=== PATIENT | male | born 1960 | race Caucasian/White ===

== ENCOUNTER 2019-12-25 19:27 | Inpatient (IN) | payer MEDICARE ==
[~2019-12-25] VITALS: Ht 170.2 cm; Wt 111.9 kg
[~2019-12-25 19:27] MED LIST: ATROPINE SYRINGE 0.1 MG/ML, 10ML ONE; EPINEPHRINE SYRINGE 0.1 MG/ML, 10ML ONE
[2019-12-26] MEDS ORDERED: NOREPINEPHRINE 1 MG/ML, 4ML ONE ×2 (00:02→00:07)
[2019-12-26] MEDS ORDERED: NOREPINEPHRINE 8 MG in SODIUM CHLORIDE 0.9% 242 ML IV PRN (00:04)
[2019-12-26] MEDS ORDERED: PROPOFOL 100 ML IV ONE (00:06)
[2019-12-26] MEDS ORDERED: EPINEPHRINE SYRINGE 0.1 MG/ML, 10ML ONE (00:13)
[2019-12-26] MEDS ORDERED: CODE BLUE RESPONSE XX ONE (00:13)
[2019-12-26 00:23] LABS: BASOPHILS % (AUTO) 0 % (0-1); EOSINOPHILS # (AUTO) 0.02 x10^3/uL (0-0.4); EOSINOPHILS % (AUTO) 0 % (1-7); LYMPHOCYTES # (AUTO) 1.37 x10^3/uL (1-3.4); LYMPHOCYTES % (AUTO) 9 % (22-44); MD NO; MEAN CORPUSCULAR HGB CONC 32.4 g/dL (33.2-36.2); MEAN CORPUSCULAR VOLUME 86.4 fL (81-97); MEAN PLATELET VOLUME 8.5 fL (7.4-10.4); MONOCYTES # (AUTO) 0.03 x10^3/uL (0.2-0.8); MONOCYTES % (AUTO) 0 % (2-9); NEUTROPHILS # (AUTO) 13.43 x10^3/uL (1.8-6.8); NEUTROPHILS % (AUTO) 90 % (42-75); PLATELET COUNT 344 x10^3/uL (130-400); RED BLOOD COUNT 4.33 x10^6/uL (4.38-5.82); RED CELL DISTRIBUTION WIDTH 14.4 % (9.4-14.8)
[2019-12-26 00:29] LABS: INTERNATIONAL NORMALIZED RATIO 0.95 (0.93-1.1); PROTHROMBIN TIME 10.1 Seconds (9.6-11.5)
[2019-12-26] MEDS ORDERED: PHARMACY MAY ADJ FOR RENAL FX MC SCH (00:30)
[2019-12-26] MEDS ORDERED: DEXTROSE 4 GM TAB.CHEW PO PRN (00:30)
[2019-12-26] MEDS ORDERED: LACTULOSE 20 GM/30 ML UDC NG PRN (00:30)
[2019-12-26] MEDS ORDERED: SENNA 176 MG/5 ML ORAL SOL NG PRN (00:30)
[2019-12-26] MEDS ORDERED: DEXTROSE 50%, 50ML SYRINGE IVPush PRN (00:30)
[2019-12-26] MEDS ORDERED: SENNA/DOCUSATE TABLET NG PRN (00:30)
[2019-12-26] MEDS ORDERED: LIDOCAINE-MPF 1%, 2ML ENDO PRN (00:30)
[2019-12-26] MEDS ORDERED: GLUCAGON 1 MG IM PRN (00:30)
[2019-12-26] MEDS ORDERED: BISACODYL 10 MG SUPP PR PRN (00:30)
[2019-12-26 00:32] LABS: ANION GAP 11 mmol/L (5-15); CALCIUM 8.1 mg/dL (8.5-10.1); CHLORIDE 103 mmol/L (98-107); CREATININE 1.67 mg/dL (0.7-1.3); TRIGLYCERIDES 225 mg/dL (50-200)
[2019-12-26 00:44] VITALS: BP 155/76
[2019-12-26] MEDS ORDERED: INSU200I SC (00:57)
[2019-12-26] MEDS ORDERED: INSU100I28 SC (00:57)
[2019-12-26] MEDS ORDERED: LISI-167 PO (00:57)
[2019-12-26] MEDS ORDERED: ATOR-2 PO (00:57)
[2019-12-26 00:59] VITALS: BP 122/69
[2019-12-26 01:00] LABS: TRIGLYCERIDES 227 mg/dL (50-200); TROPONIN I < 0.015 ng/mL (0.000-0.045)
[2019-12-26] MEDS ORDERED: FENTANYL PF 100 MCG/2ML IVPush PRN (01:00)
[2019-12-26] MEDS ORDERED: VANCOMYCIN 2,500 MG in SODIUM CHLORIDE 0.9% 500 ML IV ONE (01:00)
[2019-12-26] MEDS ORDERED: PHARMACOKINETIC MONITORING MC PRN (01:00)
[2019-12-26] MEDS ORDERED: PHARMACOKINETIC CONSULTATION MC ONE (01:00)
[2019-12-26 01:08] LABS: C-REACTIVE PROTEIN, QUANT > 19.00 mg/dL (0.02-0.49)
[2019-12-26] MEDS: PIPERACILLIN/TAZO/PMX 3.375GM 50 ML IV SCH ×4 (01:11→19:57)
[2019-12-26] MEDS: ENOXAPARIN 40 MG/0.4 ML SQ SCH (01:17)
[2019-12-26 01:24] LABS: HCT (SEDRATE) 37.4 % (39.2-51.8)
[2019-12-26] MEDS ORDERED: HYDROXYCHLOROQUINE 200 MG TABLET PO SCH (01:30)
[2019-12-26] MEDS ORDERED: AZITHROMYCIN 500 MG in SODIUM CHLORIDE 0.9% 250 ML IV SCH (01:30)
[2019-12-26] MEDS: POTASSIUM CHLORIDE 40 MEQ in SODIUM CHLORIDE 0.9% 1,000 ML IV SCH ×2 (01:35→09:40)
[2019-12-26] MEDS: PLAQUENIL 200MG/8ML ORAL SUSP PO SCH ×4 (02:16→21:45)
[2019-12-26 02:29] LABS: CULTURE INDICATED? YES; MICROSCOPIC INDICATED
[2019-12-26] MEDS ORDERED: VANCOMYCIN PER PHARMACY MC PRN (03:00)
[2019-12-26] MEDS: INSULIN LISPRO 100 UNITS/ML, PEN SQ-INSULIN SCH ×4 (03:54→21:58)
[2019-12-26] MEDS: ACETAMINOPHEN 650 MG/20.3 ML UDC PO/NG PRN ×2 (05:49→22:02)
[2019-12-26] MEDS: PROPOFOL 100 ML IV PRN ×6 (05:49→23:02)
[2019-12-26 06:24] LABS: ALBUMIN 0.9 g/dL (3.4-5.0); ANION GAP 10 mmol/L (5-15); CALCIUM 7.7 mg/dL (8.5-10.1); CHLORIDE 105 mmol/L (98-107)
[2019-12-26 06:26] LABS: BASOPHILS % (AUTO) 0 % (0-1); EOSINOPHILS # (AUTO) 0.01 x10^3/uL (0-0.4); EOSINOPHILS % (AUTO) 0 % (1-7); LYMPHOCYTES # (AUTO) 0.64 x10^3/uL (1-3.4); LYMPHOCYTES % (AUTO) 5 % (22-44); MD NO; MEAN CORPUSCULAR HEMOGLOBIN 28.4 pg (27.5-34.5); MEAN CORPUSCULAR VOLUME 86.3 fL (81-97); MEAN PLATELET VOLUME 7.9 fL (7.4-10.4); MONOCYTES # (AUTO) 0.28 x10^3/uL (0.2-0.8); MONOCYTES % (AUTO) 2 % (2-9); NEUTROPHILS # (AUTO) 11.51 x10^3/uL (1.8-6.8); NEUTROPHILS % (AUTO) 93 % (42-75); PLATELET COUNT 319 x10^3/uL (130-400); RED BLOOD COUNT 3.72 x10^6/uL (4.38-5.82); RED CELL DISTRIBUTION WIDTH 13.9 % (9.4-14.8)
[2019-12-26 06:28] LABS: ALANINE AMINOTRANSFERASE 19 U/L (12-78); ALKALINE PHOSPHATASE 89 U/L (45-117); BILIRUBIN,TOTAL 0.6 mg/dL (0.2-1.0); CREATININE 1.51 mg/dL (0.7-1.3); TOTAL PROTEIN 5.3 g/dL (6.4-8.2)
[2019-12-26] MEDS ORDERED: INSULIN LISPRO 100 UNITS/ML, PEN SQ-INSULIN SCH (07:00)
[2019-12-26 07:12] LABS: TROPONIN I 0.062 ng/mL (0.000-0.045)
[2019-12-26] MEDS: PANTOPRAZOLE 40 MG IV IV SCH (08:47)
[2019-12-26] MEDS: SODIUM CHLORIDE FLUSH 10ML SYR IVF SCH ×2 (08:48→21:46)
[2019-12-26] MEDS: ZINC SULFATE 220 MG CAPSULE PO SCH (08:48)
[2019-12-26] MEDS: ASCORBATE SODIUM 3,000 MG in SODIUM CHLORIDE 0.9% 250 ML IV SCH ×3 (08:58→21:45)
[2019-12-26] MEDS ORDERED: ASCORBIC ACID 500 MG TABLET PO SCH (09:00)
[2019-12-26] MEDS ORDERED: POTASSIUM CHLORIDE 10% 20 MEQ/15 ML UDC PO ONE (10:00)
[2019-12-26] MEDS ORDERED: FUROSEMIDE 20 MG/2 ML IV ONE (10:00)
[2019-12-26] MEDS: ALBUMIN HUMAN 25% 100 ML IV SCH ×2 (10:31→16:35)
[2019-12-26] MEDS: LINEZOLID 600 MG TABLET PO SCH ×2 (10:32→21:44)
[2019-12-27] MEDS: ENOXAPARIN 40 MG/0.4 ML SQ SCH (01:40)
[2019-12-27] MEDS: ALBUMIN HUMAN 25% 100 ML IV SCH ×3 (01:40→16:32)
[2019-12-27] MEDS: PROPOFOL 100 ML IV PRN ×8 (01:45→23:32)
[2019-12-27] MEDS: PIPERACILLIN/TAZO/PMX 3.375GM 50 ML IV SCH ×2 (02:31→08:06)
[2019-12-27] MEDS: INSULIN LISPRO 100 UNITS/ML, PEN SQ-INSULIN SCH ×4 (03:00→20:24)
[2019-12-27 05:14] LABS: BASOPHILS # (AUTO) 0.01 x10^3/uL (0-0.1); BASOPHILS % (AUTO) 0 % (0-1); EOSINOPHILS # (AUTO) 0.05 x10^3/uL (0-0.4); EOSINOPHILS % (AUTO) 1 % (1-7); LYMPHOCYTES # (AUTO) 0.76 x10^3/uL (1-3.4); LYMPHOCYTES % (AUTO) 8 % (22-44); MD NO; MEAN CORPUSCULAR HEMOGLOBIN 28.2 pg (27.5-34.5); MEAN CORPUSCULAR VOLUME 85.3 fL (81-97); MEAN PLATELET VOLUME 8.1 fL (7.4-10.4); MONOCYTES # (AUTO) 0.45 x10^3/uL (0.2-0.8); MONOCYTES % (AUTO) 5 % (2-9); NEUTROPHILS # (AUTO) 7.78 x10^3/uL (1.8-6.8); NEUTROPHILS % (AUTO) 86 % (42-75); PLATELET COUNT 249 x10^3/uL (130-400); RED BLOOD COUNT 3.24 x10^6/uL (4.38-5.82); RED CELL DISTRIBUTION WIDTH 14.6 % (9.4-14.8)
[2019-12-27 05:18] LABS: ANION GAP 12 mmol/L (5-15); CALCIUM 7.9 mg/dL (8.5-10.1); CHLORIDE 108 mmol/L (98-107); CREATININE 2.87 mg/dL (0.7-1.3)
[2019-12-27] MEDS: PLAQUENIL 200MG/8ML ORAL SUSP PO SCH ×3 (05:20→22:17)
[2019-12-27] MEDS: ASCORBATE SODIUM 3,000 MG in SODIUM CHLORIDE 0.9% 250 ML IV SCH ×4 (05:20→22:17)
[2019-12-27] MEDS ORDERED: LACTATED RINGERS 1,000 ML IV ONE (09:00)
[2019-12-27] MEDS: LINEZOLID 600 MG TABLET PO SCH (09:31)
[2019-12-27] MEDS: ZINC SULFATE 220 MG CAPSULE PO SCH (09:31)
[2019-12-27] MEDS: AZITHROMYCIN 500 MG TABLET PO SCH (09:32)
[2019-12-27] MEDS: PANTOPRAZOLE 40 MG IV IV SCH (09:32)
[2019-12-27] MEDS: SODIUM CHLORIDE FLUSH 10ML SYR IVF SCH ×2 (09:42→20:24)
[2019-12-27] MEDS ORDERED: AMPICILLIN/SULBACTAM 3 GM in SODIUM CHLORIDE 0.9% 100 ML IV SCH (13:00)
[2019-12-28] MEDS: ALBUMIN HUMAN 25% 100 ML IV SCH ×2 (01:31→09:25)
[2019-12-28] MEDS: ENOXAPARIN 40 MG/0.4 ML SQ SCH (01:31)
[2019-12-28] MEDS: INSULIN LISPRO 100 UNITS/ML, PEN SQ-INSULIN SCH ×3 (03:00→14:53)
[2019-12-28] MEDS: AMPICILLIN/SULBACTAM 3 GM in SODIUM CHLORIDE 0.9% 100 ML IV SCH ×3 (03:19→14:47)
[2019-12-28] MEDS: PROPOFOL 100 ML IV PRN ×4 (03:22→13:26)
[2019-12-28] MEDS: ASCORBATE SODIUM 3,000 MG in SODIUM CHLORIDE 0.9% 250 ML IV SCH ×3 (04:52→16:00)
[2019-12-28 05:43] LABS: BASOPHILS % (AUTO) 0 % (0-1); EOSINOPHILS # (AUTO) 0.06 x10^3/uL (0-0.4); EOSINOPHILS % (AUTO) 1 % (1-7); LYMPHOCYTES # (AUTO) 0.58 x10^3/uL (1-3.4); LYMPHOCYTES % (AUTO) 6 % (22-44); MD NO; MEAN CORPUSCULAR HEMOGLOBIN 28.9 pg (27.5-34.5); MEAN CORPUSCULAR HGB CONC 32.9 g/dL (33.2-36.2); MEAN CORPUSCULAR VOLUME 87.8 fL (81-97); MEAN PLATELET VOLUME 8.3 fL (7.4-10.4); MONOCYTES % (AUTO) 4 % (2-9); NEUTROPHILS # (AUTO) 8.19 x10^3/uL (1.8-6.8); NEUTROPHILS % (AUTO) 89 % (42-75); PLATELET COUNT 217 x10^3/uL (130-400); RED BLOOD COUNT 3.15 x10^6/uL (4.38-5.82)
[2019-12-28 05:44] LABS: ANION GAP 19 mmol/L (5-15); CALCIUM 8.3 mg/dL (8.5-10.1); CHLORIDE 107 mmol/L (98-107); CREATININE 4.41 mg/dL (0.7-1.3)
[2019-12-28 05:45] LABS: ALBUMIN 2.1 g/dL (3.4-5.0)
[2019-12-28] MEDS: PLAQUENIL 200MG/8ML ORAL SUSP PO SCH (05:53)
[2019-12-28 06:16] LABS: C-REACTIVE PROTEIN, QUANT > 19.00 mg/dL (0.02-0.49)
[2019-12-28] MEDS: ZINC SULFATE 220 MG CAPSULE PO SCH (09:24)
[2019-12-28] MEDS: SODIUM CHLORIDE FLUSH 10ML SYR IVF SCH (09:25)
[2019-12-28] MEDS: AZITHROMYCIN 500 MG TABLET PO SCH (09:25)
[2019-12-28] MEDS: PANTOPRAZOLE 40 MG IV IV SCH (09:25)
[2019-12-28] MEDS ORDERED: MIDAZOLAM HCL 50 MG in SODIUM CHLORIDE 0.9% 40 ML IV PRN ×2 (10:30→15:29)
[2019-12-28] MEDS ORDERED: FENTANYL PF 1,000 MCG in SODIUM CHLORIDE 0.9% 80 ML IV PRN (10:30)
[2019-12-28] MEDS ORDERED: EPINEPHRINE SYRINGE 0.1 MG/ML, 10ML ONE ×2 (14:00→17:26)
[2019-12-28] MEDS ORDERED: SODIUM BICARB 8.4%, 50ML SYRINGE ONE ×3 (14:00→17:03)
[2019-12-28] MEDS ORDERED: CALCIUM CHLORIDE 10%, 10ML SYR ONE (14:00)
[2019-12-28] MEDS ORDERED: SODIUM BICARBONATE 8.4% 150 MEQ in DEXTROSE 5% 1,000 ML IV SCH ×2 (15:30→16:00)
[2019-12-28] MEDS ORDERED: CALCIUM CHLORIDE 13.6 MEQ/10 ML ONE ×2 (15:45→17:26)
[2019-12-28] MEDS ORDERED: EPINEPHRINE 1 MG/ML, 1ML ONE (15:45)
[2019-12-28] MEDS ORDERED: EPINEPHRINE 1 MG/ML, 30ML ONE (15:45)
[2019-12-28 16:19] LABS: ALANINE AMINOTRANSFERASE 82 U/L (12-78); ALBUMIN 2.1 g/dL (3.4-5.0); ANION GAP 16 mmol/L (5-15); CALCIUM 12.1 mg/dL (8.5-10.1); CHLORIDE 108 mmol/L (98-107); CREATININE 5.09 mg/dL (0.7-1.3)
[2019-12-28 16:20] LABS: TROPONIN I 0.164 ng/mL (0.000-0.045)
[2019-12-28 16:21] LABS: ALKALINE PHOSPHATASE 183 U/L (45-117); BILIRUBIN,TOTAL 1.2 mg/dL (0.2-1.0); MD YES; MEAN CORPUSCULAR HEMOGLOBIN 28.5 pg (27.5-34.5); MEAN CORPUSCULAR HGB CONC 33.3 g/dL (33.2-36.2); MEAN CORPUSCULAR VOLUME 85.6 fL (81-97); MEAN PLATELET VOLUME 8.6 fL (7.4-10.4); PLATELET COUNT 259 x10^3/uL (130-400); RED BLOOD COUNT 3.08 x10^6/uL (4.38-5.82); RED CELL DISTRIBUTION WIDTH 15.7 % (9.4-14.8); TOTAL PROTEIN 5.6 g/dL (6.4-8.2)
[2019-12-28 16:23] LABS: BAND#(MANUAL) 0.62 x10^3/uL; BANDS%(MANUAL) 5 % (0-7); EOS#(MANUAL) 0.12 x10^3/uL (0.0-0.4); EOS% (MANUAL) 1 % (1-7); LYMPH#(MANUAL) 2.58 x10^3/uL (1-3.4); LYMPHS% (MANUAL) 21 % (22-44); METAMYELOCYTES# (MANUAL) 0.25 x10^3/uL (0-0); METAMYELOCYTES% (MANUAL) 2 % (0-1); MONOS#(MANUAL) 0.49 x10^3/uL (0.3-2.7); MONOS% (MANUAL) 4 % (2-9); NRBC % (MANUAL) 3 % (0-1); SEG#(MANUAL) 8.24 x10^3/uL (1.8-6.8); SEGS% (MANUAL) 67 % (42-75)
[2019-12-28 16:24] LABS: ANISOCYTOSIS 1+; HYPOCHROMIA 1+
[2019-12-28 16:25] LABS: <PLATELET ESTIMATE> ADEQUATE; <PLT MORPHOLOGY> NORMAL PLT MORPH
[2019-12-28] MEDS ORDERED: ALBUMIN HUMAN 25% 100 ML IV SCH (17:00)
[2019-12-28] MEDS ORDERED: SODIUM BICARBONATE 1 MEQ/ML, 50ML VIAL ONE (17:26)
[2019-12-28] MEDS ORDERED: CODE BLUE RESPONSE XX ONE (17:41)
[2019-12-28] MEDS ORDERED: SODIUM BICARB 8.4%, 50ML SYRINGE IVPush ONE (18:00)
[2019-12-28] MEDS ORDERED: PHENYLEPHRINE 50 MG in SODIUM CHLORIDE 0.9% 245 ML IV PRN (18:00)
[2019-12-28] MEDS ORDERED: PLAQUENIL 200MG/8ML ORAL SUSP PO SCH (21:00)
[2019-12-29] MEDS ORDERED: ENOXAPARIN 30 MG/0.3 ML SQ SCH (02:00)
== END 2019-12-29 | disposition expired | DRG 871 ==
LOC: ICU 23:41
PROVIDERS: ADMIT Internal Medicine; ATTEND Internal Medicine
PROC: 5A1945Z Respiratory Ventilation, 24-96 Consecutive Hours (ICD-10-PCS; principal; 2019-12-26)
PROC: 0T9B70Z Drainage of Bladder with Drainage Device, Via Natural or Artificial Opening (ICD-10-PCS; 2019-12-26)
PROC: 0BH17EZ Insertion of Endotracheal Airway into Trachea, Via Natural or Artificial Opening (ICD-10-PCS; 2019-12-26)
PROC: 03HY32Z Insertion of Monitoring Device into Upper Artery, Percutaneous Approach (ICD-10-PCS; 2019-12-26)
PROC: 02HV33Z Insertion of Infusion Device into Superior Vena Cava, Percutaneous Approach (ICD-10-PCS; 2019-12-28)
PROC: B548ZZA Ultrasonography of Superior Vena Cava, Guidance (ICD-10-PCS; 2019-12-28)
DX: A41.89 Other specified sepsis (principal); U07.1 COVID-19; E43 Unspecified severe protein-calorie malnutrition; G93.41 Metabolic encephalopathy; J96.01 Acute respiratory failure with hypoxia; N17.0 Acute kidney failure with tubular necrosis; R65.21 Severe sepsis with septic shock; J12.89 Other viral pneumonia; N17.9 Acute kidney failure, unspecified; E87.1 Hypo-osmolality and hyponatremia; E87.2 Acidosis; Z99.11 Dependence on respirator [ventilator] status; I46.2 Cardiac arrest due to underlying cardiac condition; D64.9 Anemia, unspecified; E11.22 Type 2 diabetes mellitus with diabetic chronic kidney disease; E11.65 Type 2 diabetes mellitus with hyperglycemia; E78.5 Hyperlipidemia, unspecified; E87.6 Hypokalemia; I12.9 Hypertensive chronic kidney disease with stage 1 through stage 4 chronic kidney disease, or unspecified chronic kidney disease; J98.01 Acute bronchospasm; K21.9 Gastro-esophageal reflux disease without esophagitis; N18.9 Chronic kidney disease, unspecified; Z79.899 Other long term (current) drug therapy; Z79.4 Long term (current) use of insulin
CPT/HCPCS: 36415; 36556; 36600; 71045; 76937; 77001; 80048; 80053; 81001; 82040; 82533; 82803; 82805; 82962; 83605; 83615; 83690; 83735; 84100; 84145; 84478; 84484; 85025; 85379; 85610; 85651; 86140; 87040; 87070; 87081; 87086; 87205; 92950; 94002; 94003; G0378; J0171; J0295; J0456; J0461; J1650; J2250; J2543; J2704; J3010; J3370; J3480; P9047; C1751; C9113; J1642; J1815; J1940; J7030; J7040; J7050; J7120